=== PATIENT | male | born 1965 | race Caucasian/White ===

== ENCOUNTER 2020-06-02 18:40 | Emergency (ER) | payer MEDICAID, OTHER ==
[~2020-06-02] VITALS: Ht 180.3 cm; Wt 71.2 kg
[2020-06-02 18:56] VITALS: BP 134/69
[2020-06-02] MEDS ORDERED: GELATIN SPONGE,ABSORBABLE 1 SPONGE SPONGE TP ONE ×3 (19:25→19:40)
--- NOTE | 2020-06-02 19:28 | NUR ---
EMT AT THE BED SIDE FOR WOUND CARE
== END 2020-06-02 19:54 | disposition home or self-care (01) ==
LOC: ER 18:42
DX: S61.207A Unspecified open wound of left little finger without damage to nail, initial encounter (principal); E11.9 Type 2 diabetes mellitus without complications; F41.9 Anxiety disorder, unspecified; X58.XXXA Exposure to other specified factors, initial encounter; Y93.89 Activity, other specified; Y92.89 Other specified places as the place of occurrence of the external cause; Y99.8 Other external cause status
CPT/HCPCS: 99283; A6403 ×2

== ENCOUNTER 2020-10-12 04:34 | Emergency (ER) | payer BC ==
[~2020-10-12] VITALS: Ht 180.3 cm; Wt 72.6 kg
[2020-10-12 04:34] VITALS: BP 125/87
--- NOTE | 2020-10-12 05:05 | NUR ---
DR ESPINOZA AT BEDSIDE
== END 2020-10-12 05:14 | disposition home or self-care (01) ==
LOC: ER 04:36
DX: R60.0 Localized edema (principal); F17.200 Nicotine dependence, unspecified, uncomplicated; E11.9 Type 2 diabetes mellitus without complications; F41.9 Anxiety disorder, unspecified

== ENCOUNTER 2021-06-10 17:48 | Emergency (ER) | payer BC ==
[~2021-06-10] VITALS: Ht 180.3 cm; Wt 72.6 kg
[2021-06-10] MEDS ORDERED: LORAZEPAM INJ 2 MG/ML VIAL ONE (18:17)
[2021-06-10] MEDS ORDERED: LORAZEPAM INJ 2 MG/ML VIAL IVP ONE (18:30)
[2021-06-10] MEDS ORDERED: IV NS 0.9% 1,000 ML BAG IV ONE (18:30)
[2021-06-10 18:32] LABS: BASOPHILS % (AUTO) 0.2 % (0.0-2.0); EOSINOPHILS % (AUTO) 0.3 % (0.0-6.0); HEMATOCRIT 37 % (39-51); HEMOGLOBIN 12.5 g/dL (13.5-17.5); LYMPHOCYTES % (AUTO) 13.9 % (20.0-44.0); MEAN CORPUSCULAR HGB CONC 34 g/dl (31.0-36.0); MEAN CORPUSCULAR VOLUME 98 fL (80-96); MONOCYTES # (AUTO) 0.4 K/uL (0.1-1.30); MONOCYTES % (AUTO) 6.1 % (2.0-12.0); NEUTROPHILS # (AUTO) 5.8 K/uL (1.8-8.9); NEUTROPHILS % (AUTO) 79.5 % (43.0-81.0); PLATELET COUNT (AUTO) 242 K/uL (150-450); WHITE BLOOD COUNT (AUTO) 7.3 K/uL (4.3-11.0)
--- NOTE | 2021-06-10 18:34 | NUR ---
ALTHEA FROM HOME TO ER BED 6. AAOX4. NOT IN RESP DISTRESS.AMBULATORY. BROUGHT IN FOR GENERALIZED BODY PAIN WHICH HE NOTED TO HAVE STARTED AFTER HE DID "CRACK". PT IS NOTED TACHYCARDIC. PROVIDER WAS AT THE BEDSIDE FOR EVAL. ORDERS RECEIVED, NOTED AND CARRIED OUT. IV LINE ESTABLISHED ON LFA 18G, BLOOD DRAWN AND GIVEN TO PHLEB. PT UNABLE TO URINATE AT THIS TIME.
[2021-06-10 19:14] LABS: CALCIUM, SERUM 8.9 mg/dL (8.5-10.1); CARBON DIOXIDE 28 mmol/L (21-32); CHLORIDE 104 mmol/L (98-107); CREATININE 0.8 mg/dL (0.6-1.3); GLUCOSE 172 mg/dL (74-106); POTASSIUM 3.4 mmol/L (3.5-5.1); SODIUM SERUM 139 mmol/L (136-145); UREA NITROGEN, BLOOD 12 mg/dL (7-18)
[2021-06-10 19:28] LABS: ALANINE AMINOTRANSFERASE 51 U/L (12-78); ALBUMIN 3.3 g/dL (3.4-5.0); ALKALINE PHOSPHATASE 95 U/L (46-116); ASPARTATE AMINOTRANSFERASE 56 U/L (15-37); BILIRUBIN,DIRECT 0.2 mg/dL (0.0-0.2); BILIRUBIN,TOTAL 0.6 mg/dL (0.2-1.0); TOTAL PROTEIN, SERUM 6.4 g/dL (6.4-8.2)
[2021-06-10] MEDS ORDERED: IBUPROFEN 600 MG TABLET PO ONE (19:30)
[2021-06-10 19:31] LABS: ACETAMINOPHEN < 10 ug/ml (10-30); ALCOHOL, BLOOD < 3 mg/dL (0-0)
[2021-06-10 19:33] LABS: BILIRUBIN,URINE Negative (NEGATIVE); COLOR,URINE DARK YELLOW (YELLOW); LEUKOCYTE ESTERASE ,URINE Negative (NEGATIVE); NITRITE, URINE Negative (NEGATIVE); PROTEIN,URINE Trace mg/dl (NEGATIVE); UGLUCOSE 100 MG/DL mg/dL (NEGATIVE); UROBILINOGEN,URINE 0.2 EU/dL (0.2)
[2021-06-10 19:50] LABS: BACTERIA,URINE Rare /HPF (None Seen); RBC,URINE 21-50 /HPF (0-2); SQUAMOUS EPITHELIAL CELL,UR Few /HPF (None Seen); WBC,URINE NONE SEEN /HPF (0-3)
[2021-06-10] MEDS ORDERED: IBUPROFEN 600 MG TABLET ONE (19:58)
[2021-06-10] MEDS ORDERED: POTASSIUM CHLORIDE 20 MEQ TAB.PRT.SR PO ONE ×2 (19:58→20:00)
[2021-06-10 21:37] VITALS: BP 113/75
--- NOTE | 2021-06-10 21:37 | NUR ---
Patient discharged to home in stable condition. Written and verbal after care instructions given. Patient verbalizes understanding of instruction. Pt denies SI and HI. Ambulated out of ED.
--- NOTE | 2021-06-10 21:37 | NUR ---
IV removed. Catheter intact and site benign. Pressure and 4x4 applied to site. No bleeding noted.
== END 2021-06-10 21:37 | disposition home or self-care (01) ==
LOC: ER 17:48
DX: F19.10 Other psychoactive substance abuse, uncomplicated (principal); D64.9 Anemia, unspecified; Z20.822 Contact with and (suspected) exposure to COVID-19; R31.29 Other microscopic hematuria; E87.6 Hypokalemia; F41.9 Anxiety disorder, unspecified; F15.10 Other stimulant abuse, uncomplicated; F14.10 Cocaine abuse, uncomplicated; E11.9 Type 2 diabetes mellitus without complications
CPT/HCPCS: 36415; 80048; 80076; 80143; 80307; 80320; 81001; 82550; 83690; 85025; 87426; 96361; 96374; 99283; C9803; J2060; G0480